=== PATIENT | female | born 1980 | race Caucasian/White ===

== ENCOUNTER → 2017-03-25 | Outpatient (CLI) | payer OTHER ==
[~2017-03-25] MED LIST: BUSPAR 5MG TABLE5 MG PO; COLACE 100MG C100 MG PO; ESTRACE0.5 MG PO; FISH OIL 1,0001 EAC5 PO; GLUCOPHAGE 500500 MG PO; IBUPROFEN600 MG PO; MICROZIDE12.5 MG PO; MIRALAX 119 GR119 GM PO; NEURONTIN 400400 MG PO; PERCOCET 10-321 EACH PO; PRILOSEC OTC20 MG PO; TYLENOL W/CODEIN1 E1 PO; VALTREX1000 MG PO; ZANAFLEX4 M1 PO
[2017-03-25 14:45] LABS: HEMOGLOBIN 14.2 gm/dl (12.3-15.3); RED BLOOD COUNT 4.7 M/UL (4.00-5.10); WHITE BLOOD COUNT 6.4 K/UL (4.5-11.0)
== END ==
LOC: OPSV2 13:00
PROVIDERS: Obstetrics & Gynecology
DX: Z01.812 Encounter for preprocedural laboratory examination (principal); N92.0 Excessive and frequent menstruation with regular cycle
CPT/HCPCS: 81001; 85025

== ENCOUNTER 2017-03-30 08:06 | Inpatient (IN) | payer OTHER ==
[~2017-03-30] VITALS: Ht 170.2 cm; Wt 113.4 kg
[2017-03-30] MEDS ORDERED: PRILOSEC OTC20 MG PO (09:07)
[2017-03-30] MEDS ORDERED: FISH OIL 1,0001 EAC5 PO (09:07)
[2017-03-30] MEDS ORDERED: GLUCOPHAGE 500500 MG PO (09:08)
[2017-03-30] MEDS ORDERED: ZANAFLEX4 M1 PO (09:08)
[2017-03-30] MEDS ORDERED: NEURONTIN 400400 MG PO (09:09)
[2017-03-30] MEDS ORDERED: MICROZIDE12.5 MG PO (09:09)
[2017-03-30] MEDS ORDERED: BUSPAR 5MG TABLE5 MG PO (09:10)
[2017-03-30] MEDS ORDERED: TYLENOL W/CODEIN1 E1 PO (09:11)
[2017-03-30] MEDS ORDERED: VALTREX1000 MG PO (09:11)
[2017-03-31 04:49] LABS: HEMOGLOBIN 13.3 gm/dl (12.3-15.3)
[2017-03-31] MEDS ORDERED: ESTRACE0.5 MG PO (15:10)
[2017-03-31] MEDS ORDERED: IBUPROFEN600 MG PO (15:10)
[2017-03-31] MEDS ORDERED: COLACE 100MG C100 MG PO (15:11)
[2017-03-31] MEDS ORDERED: PERCOCET 10-321 EACH PO (15:13)
[2017-03-31] MEDS ORDERED: MIRALAX 119 GR119 GM PO (15:14)
== END 2017-03-31 16:35 | disposition home or self-care (01) | DRG 743 ==
LOC: ZOBSOF 08:06 → MED SURG 4 14:47
PROVIDERS: ADMIT Obstetrics & Gynecology
PROC: 0UTC0ZZ Resection of Cervix, Open Approach (ICD-10-PCS; principal; 2017-03-30 08:50)
PROC: 0UT70ZZ Resection of Bilateral Fallopian Tubes, Open Approach (ICD-10-PCS; principal; 2017-03-30 08:50)
PROC: 0DNS0ZZ (ICD-10-PCS; principal; 2017-03-30 08:50)
PROC: 0UT90ZZ Resection of Uterus, Open Approach (ICD-10-PCS; principal; 2017-03-30 08:50)
PROC: 0UT20ZZ Resection of Bilateral Ovaries, Open Approach (ICD-10-PCS; principal; 2017-03-30 08:50)
DX: N93.9 Abnormal uterine and vaginal bleeding, unspecified (principal); F17.290 Nicotine dependence, other tobacco product, uncomplicated; Z88.0 Allergy status to penicillin; Z88.2 Allergy status to sulfonamides
CPT/HCPCS: 36415; 82962; 85014; 85018; J1100; J1580; J1885; J2250; J2270; J2405; J2710; J3010; J7120

== ENCOUNTER 2021-09-15 19:16 | Emergency (ER) | payer MEDICARE, OTHER ==
[2021-09-15 23:26] LABS: HEMOGLOBIN 15.4 gm/dl (12.3-15.3); RED BLOOD COUNT 4.92 M/UL (4.00-5.10); WHITE BLOOD COUNT 7.7 K/UL (4.5-11.0)
[2021-09-15 23:47] LABS: BUN/CREATININE RATIO 25 (0-10)
[2021-09-16] MEDS ORDERED: PERCOCET 5/325 T1 EA PO (00:48)
== END 2021-09-16 01:35 | disposition home or self-care (01) ==
LOC: ER1 19:16
PROVIDERS: Student in an Organized Health Care Education/Training Program
DX: M54.50 Low back pain, unspecified (principal); Z90.49 Acquired absence of other specified parts of digestive tract
CPT/HCPCS: 72133; 80048; 85025; 96374; 96375; 99284; J1885; J2270; Q9967